=== PATIENT | female | born 1950 | race Caucasian/White ===

== ENCOUNTER → 2018-11-25 11:30 | Outpatient (CLI) | payer OTHER, SELFPAY ==
--- NOTE | 2018-11-25 11:30 | EMB_PTH ---
PATIENT: TAIWO NGO LOC: [facility] U#:[id number] AGE/SX: 74/F ROOM: RE11/25/[address]: Dr. Barak Quiros MD : 1950 BED: DIS: SPEC #: [id number] RECD: 11/26/18 10:43 STATUS: CHARLEY JORGE #: [id number] VIVIAN: 11/25/18 11:[address]: Barak Quiros DEPT: SURGICAL PATHOLOGY RECD BY: Vy Bartlett Tissues: Endometrium, NOS Procedures: Surgery Specimen Level IV HEADER OPERATION: Endometrial biopsy PRE-OP DIAGNOSIS: Post menopausal bleeding N95.0 TISSUE SUBMITTED: Endometrial biopsy MICROSCOPIC DIAGNOSIS Endometrium, biopsy: Rare benign degenerating epithelioid cells noted. AM:talya 11/28/18 COMMENT Clinical correlation is suggested. MICROSCOPIC DESCRIPTION Slides are reviewed. GROSS DESCRIPTION Received in fixative is one container labeled with the patient's name and designated EM biopsy. The specimen is totally submitted in one cassette for cell block preparation. / SJ:talya 11/26/18 TC:5 CPT: 19858
== END ==
PROVIDERS: Referring Provider Obstetrics & Gynecology; Visit Provider Obstetrics & Gynecology
DX: N95.0 Postmenopausal bleeding (principal)
CPT/HCPCS: 88305

== ENCOUNTER → 2018-12-25 10:00 | Outpatient (CLI) | payer OTHER, SELFPAY ==
[2018-12-25 11:18] LABS: Hematocrit 40.8 % (37-47); Hemoglobin 13.1 g/dl (12.0-15.0); Mean Corp Hgb Conc 32.1 g/gl (32-36); Mean Corpuscular Hgb 28.9 pg (27.0-32.0); Mean Corpuscular Volume 89.9 fL (81-99); Mean Platelet Vol. 9.1 fl (6.2-12.0); Platelet Count 251 K/mm3 (150-450); RBC Distribution Width CV 13.6 % (11.6-14.6); RBC Distribution Width SD 44.8 fl (35.1-43.9); Red Blood Count 4.54 M/mm3 (4.2-5.4); White Blood Count 4.4 K/mm3 (4.4-11.0)
[2018-12-25 11:22] LABS: Prothrombin Time (Protime)PT. 12.8 SECONDS (11.7-14.9); Scan Indicated on CBC? Y/N NO
[2018-12-25 11:23] LABS: Partial Thromboplast Time 28.5 Seconds (24.1-36.2)
[2018-12-25 11:44] LABS: ALB/GLOB Ratio 1.1 RATIO (0.9-2.4); AST(SGOT) 14 U/L (15-37); Alanine Aminotransfer ALT/SGPT 15 U/L (13-56); Alkaline Phosphatase 57 U/L (45-117); Anion Gap 6 (5-15); BUN 12 mg/dL (7-18); BUN/Creat Ratio 15.1 RATIO (10-20); Calcium,Total 9.1 mg/dL (8.5-10.1); Chloride 106 mmol/L (98-107); EST Glomerular Filtration Rate 76 mL/min (>60); Est Glom Filt Rate - Afr Amer 92 mL/min (>60); Globulin 3.6 g/dL (2.2-4.2); Glucose 107 mg/dL (74-106); Potassium 3.9 mmol/L (3.5-5.1); Protein, Total 7.6 g/dL (6.4-8.2); Sodium Level 140 mmol/L (136-145)
[2018-12-26 18:51] LABS: Cancer Antigen 125 30.7 U/mL (0.0-38.1)
== END ==
PROVIDERS: Referring Provider Obstetrics & Gynecology; Visit Provider Obstetrics & Gynecology
DX: Z01.818 Encounter for other preprocedural examination (principal)
CPT/HCPCS: 36415; 80053; 85027; 85610; 85730; 86304

== ENCOUNTER 2019-02-23 05:31 | Day surgery (SDC) | payer SELFPAY, OTHER ==
--- NOTE | 2019-02-19 16:45 | EKG12_ITS ---
Test Reason : PREOP Blood Pressure : / mmHG Vent. Rate : 072 BPM Atrial Rate : 072 BPM P-R Int : 210 ms QRS Dur : 080 ms QT Int : 366 ms P-R-T Axes : 068 036 041 degrees QTc Int : 400 ms Sinus rhythm with 1st degree A-V block Otherwise normal ECG No previous ECGs available Confirmed by LARISSA ROJAS ([id number]), book or script editor CORDELL HOYOS ([id number]) on 02/23/2019 3:10:10 PM Referred By: Barak Quiros Confirmed By:LARISSA ROJAS
[2019-02-19 17:30] LABS: Hematocrit 41.1 % (37-47); Hemoglobin 13.2 g/dL (12.0-15.0); Mean Corp Hgb Conc 32.1 g/dL (32-36); Mean Corpuscular Hgb 29.1 pg (27.0-32.0); Mean Corpuscular Volume 90.5 fL (81-99); Mean Platelet Vol. 8.8 fl (6.2-12.0); Platelet Count 235 K/mm3 (150-450); RBC Distribution Width CV 13.1 % (11.6-14.6); RBC Distribution Width SD 43.5 fl (35.1-43.9); Red Blood Count 4.54 M/mm3 (4.2-5.4); White Blood Count 4.8 K/mm3 (4.4-11.0)
[2019-02-19 17:39] LABS: Partial Thromboplast Time 28.4 Seconds (24.1-36.2)
[2019-02-19 17:45] LABS: Creatinine, Serum 0.78 mg/dL (0.55-1.02); EST Glomerular Filtration Rate 79 mL/min (>60); Est Glom Filt Rate - Afr Amer 95 mL/min (>60)
--- NOTE | 2019-02-22 19:26 | HP.PCM_ITS ---
History and Physical Date of Admission: 02/23/19 Surgical History and Physical Juanita Sellers, a 68 year old female 2 0 7 0 2, presents for RAVH/BSO on February 23, 2019 at 10:40. -- Fluid Filled Uterus; OWNER/PHOTOGRAPHER Bleeding -- Juanita presents here today as referral from Dr. Jeancarlos Ly for PMB. 67 y.o. G 9 G 2 (with 5 adopted children as well) post-menopausal non-smoker reporting that a couple months ago, she made a little spotting, then seen PCP for check-up and he ordered an US with same done at [facility] on 10/13/18 with Endometrium fluid filled in diameter of 2.8 cm with report attached. Adds she has had periodic cramping in the last two months as well. PMB which began 4 months ago. Juanita claims it started suddenly It occurs intermittantly. It is located in the vagina. It is located in the lower abdomen. Juanita characterizes the quality spotting, cramping on (L) side. Severity is moderate and very concerned; Associa chantale signs and symptoms are some RLQ crampy pain. Additional comments are: U/S previously showed 2.7 cm endometrial fluid collection; had two C-sections and seven D and Cs in past. Additional comments are: u/s showed fluid filled uterus and bilateral hydrosalpinx; no communication seen between bladder and uterus. CA-125 high normal. MEDICATIONS HISTORY: ALLERGIES: No Known Allergies Infections - Chicken pox, Mumps and Measles Illnesses - no serious past illnesses Accidents - None Hospitalizations - see surgery Review of Systems: GENERAL - Denies fever, or chills SKIN - Denies skin changes EYES - Denies visual changes EARS - Denies difficulty hearing NOSE - Denies nasal congestion or bleeding MOUTH - Denies sore throat or difficulty swallowing NECK - Denies pain or swelling RESPIRATORY - Denies shortness of breath or wheezing CARDIOVASCULAR - Denies palpitations or chest pain GASTROINTESTINAL - Denies nausea, vomiting, diarrhea, constipation GENITOURINARY - Denies dysuria, frequency of urination, incontinence of urine MUSCULOSKELETAL - Denies joint or muscle pain NEUROLOGICAL - Denies localized numbness or weakness PSYCHIATRIC - Denies depression or anxiety ENDOCRINE - Denies heat or cold intolerance, weight loss or gain HEMATO-IMMUNOLOGIC - Denies excessive bleeding with cuts SOCIAL HISTORY: Alcohol Use - None Smoking - Never Diet - no special diet Lifestyle - moderate stress lifestyle and Exercise - active work Seat Belt Use - most of the time Employer - [employer] Illicit Drug Use - None Sexual Activity - Spouse-Sig Other Name - Willie Spouse-Sig Other Occupation - [employer] Children Name(s) - 7 children (5 children adopted) Control - postmenopausal FAMILY HISTORY: MENSTRUAL HISTORY: LMP Known?- Postmenopausal PAST PREGNANCIES: Total Pregnancies - 9; Full Term Pregnancies - 2; Premature - 0; Abortions, Induced - 0; Abortions, Spontaneous - 7; Ectopics - 0; Multiple Births - 0; Living Children - 2 SURGICAL HISTORY: 1. 09/20/1988 2. 09/27/1990 3. 7 D and C's 1989 Fibroidectomy PHYSICAL EXAM BP- 140/90 Sitting, Right arm, regular cuff Weight- 120.87012 lbs Height- 62 inch BMI:21.99 CONSTITUTIONAL - NAD, well nourished, and well developed SKIN - No rash, lesions, or ulcers HEENT - Normocephalic, PERRLA, EOMI NECK - No nodes, no nuchal rigidity and thyroid normal size and texture LYMPH NODES - Palpation of lymph nodes in neck and groins within normal limits LUNGS - CTA x2 without wheezes, crackles or rales CARDIAC - Regular rate and rhythm without rubs, murmurs, or gallops ABDOMEN - Without hepatosplenomegaly, distention, masses, rebound, or guarding; normal bowel sounds; no hernias EXTREMITIES - No edema or calf tenderness NEUROLOGICAL - Cranial nerves II-XII grossly intact PSYCHIATRIC - A and O to time, place, person, mood and affect DETAILED PELVIC EXAM External Genital Vagina - non-tender without lesions Urethra/Urethral Meatus - non-tender Bladder - non-tender Vagina - loss of rugae Cervix - without cervical motion tenderness and has normal size and features without evident lesions; atrophic cervix Uterus - 5-6 cm in size, mobile and nontender Adnexa - clear without masses or tenderness ASSESSMENT/PLAN: Postmenopausal Bleeding Endometrial biopsy was inconclusive due to scant endometrial tissue. For this reason the patient was seen a month later to see if the fluid collection had resolved from having the endometrial biopsy and check endometrial thickness. The endometrial fluid persisted and there was also noted to be dilated tubes. For this reason CA-125 was checked which showed a high-normal result (31). With this result and the persistent uterine findings, the patient desires we proceed with hysterectomy. Robotic Assisted Vaginal Hysterectomy with BSO is planned and all questions answered.
[2019-02-23] VITALS (10 sets, daily range): BP systolic 123–142; BP diastolic 63–86; PULSE 52–77; RESP 16–18; TEMP 36.2–36.6; O2SAT 75–100; BMI 20.6; BMI 20.7
[2019-02-23] MEDS: Lactated Ringers 1,000 ML 100 ML IV ×2 (06:31→06:45)
[2019-02-23] MEDS: Lubricating Jelly 60 GM Tube 30 GM TOPICAL (07:15)
--- NOTE | 2019-02-23 07:30 | HYST_PTH ---
PATIENT: TAIWO NGO LOC: [facility] [place] U#:[id number] AGE/SX: 68/F ROOM: RE02/23/[address]: Dr. Barak Quiros MD : 1950 BED: DIS: 02/24/2019 SPEC #: [id number] RECD: 02/23/19 11:16 STATUS: CHARLEY JORGE #: [id number] VIVIAN: 02/23/19 07:[address]: Barak Quiros DEPT: SURGICAL PATHOLOGY RECD BY: Vy Bartlett ENTERED: 02/23/19 11:44 SP TYPE: HYSTERECT OTHR DR: Dr. Laurie Ly MD Tissues: Uterus, NOS Procedures: Surgery Specimen Level V HEADER OPERATION: robotic assisted vaginal hysterectomy, bilateral salpingo-oophorectomy PRE-OP DIAGNOSIS: Postmenopausal bleeding, hematocolpos, hydrosalpinx TISSUE SUBMITTED: Uterus, cervix, bilateral fallopian tubes, bilateral ovaries MICROSCOPIC DIAGNOSIS Uterus, hysterectomy: Cervix - nabothian cysts and minimal chronic inflammation. Endometrium - inactive endometrium with cystic change. Myometrium - focal adenomyosis. Right fallopian tube - hydrosalpinx. Right ovary - corpora albicantia. Left fallopian tube - hydrosalpinx. Left ovary - corpora albicantia. AM:talya 02/24/19 COMMENT Case has been reviewed in consultation with Dr. Barreto who concurs with the above diagnosis. IDC:[email or web address] MICROSCOPIC DESCRIPTION Slides are reviewed. GROSS DESCRIPTION Received in fixative is one container labeled with the patient's name and designated uterus, cervix, bilateral fallopian tubes and bilateral ovaries. The specimen consists of a hysterectomy specimen consisting of uterus with cervix, attached bilateral fallopian tubes and right ovary. The left ovary is not identified. The specimen contains a detached piece of tissue measuring 3 x 2 x 0.2 cm. The uterus with cervix weighs 29 gm and measures 7 x 4.5 x 2.5 cm. The serosal surface is focally ragged anteriorly. The ectocervical mucosa is congested. The external os is circular in contour. The endocervical canal measures 2.5 cm in length and the endocervical mucosa is almanza, glistening and unremarkable. The endometrial cavity is triangular and saucer shape measuring 4 cm in length and 2.5 cm in width. The endometrium is focally congested without any mass lesion and measures <0.1 cm in thickness. Sections of the uterine wall do not reveal any mass lesion and measures up to 1 cm in thickness. The right fallopian tube measures 4 cm in length and 0.5 to 1 cm in diameter. Obvious fimbrial end is not identified. The fallopian tube is filled with clear fluid. The right ovary measures 2.5 x 1 x 1 cm. Sections reveal a hemorrhagic cyst measuring 1.5 cm in greatest dimension. The left fallopian tube is similar appearance to right and measures 4.5 cm in length and 0.5 to 1.2 cm in diameter. The left ovary is not identified. The dilated portion of the fallopian tube is filled with clear fluid. Automatic Coil Machine Operator sections are submitted in 11 cassettes as follows: 1 - anterior cervix, 2 - posterior cervix, 3 & 4 - anterior uterine wall, 5 & 6 - posterior uterine wall, 7 - right fallopian tube, 8 - right ovary, 9 & 10 - left fallopian tube (dilated portion of the fallopian tubes are submitted in entirety), 11 - detached piece of tissue, submitted in entirety. / VAISHNAVI:talya 02/23/19 TC:5 CPT: 34873
--- NOTE | 2019-02-23 07:30 | PCM.OPRPT ---
Report of Operation Date of Procedure: 02/23/19 Pre-Operative Diagnosis: Postmenopausal bleeding, Hematocolpos, Hydrosalpinx Post-Operative Diagnosis: Postmenopausal bleeding, Hematocolpos, Hydrosalpinx, Adhesions Surgery/Procedure Performed:: Robotic Assisted Vaginal Hysterectomy and Bilateral Salpingo-Oophorectomy, Lysis of Adhesions Description of Surgical Findings:: 8-10 cm uterus with normal-appearing fallopian tubes and ovaries except for mildly dilated fallopian tubes. Clear fluid filling the endometrial cavity and adhesions of the left ovary to pelvic sidewall. Adhesions of the omentum to the right anterior abdominal wall. Adhesions of the uterus to the anterior abdominal wall and bladder. Narrow pelvis and small vagina. stitching machine setter: Jose Astudillo Type of Anesthesia:: General - Endotracheal Anesthesiologist: Lee Ann Ross Specimen's removed: Uterus, bilateral fallopian tubes and ovaries Drains: Salazar to straight drain Estimated Blood Loss (mL): Minimal Fluids Replaced: Crystalloid Description of Procedure: Surgeon: Barak Quiros MD, FACOG Indication: This is a 68 year old patient who has been having problems with postmenopausal bleeding and was noted to have fluid-filled endometrial cavity and bilateral hydrosalpinx. Her Ca-125 was also high normal. Given this, the patient desires we proceed with the above surgery. The patient has been counseled regarding the risks, benefits and alternatives of this procedure including the possibility of bleeding, infection, and injury to surrounding structures such as bowel bladder and all questions were answered. Procedure: Pt taken to the operating room where, after induction of general anesthesia, the patient was prepped and draped in the usual sterile fashion and placed on a non-slip Huggy-u-vac device. Trendelenburg test was satisfactory. Bladder was drained of urine with a Salazar catheter which was left in place. Anterior cervix grasped and cervix was dilated to about 3-4 mm. Uterus sounded to 9 cms. 0-Vicryl suture was placed at the 3:00 and 9:00 position of the cervix. A small Advincula Professor Of Communication Uterine Manipulator was then placed in the uterus and attention was turned to the laparoscopic portion of the procedure. Ropivocaine 0.5% was injected approximately 2-3 cm superior to the umbilicus and an 8 mm robotic camera port was introduced directly with intraperitoneal placement confirmed with CO2 insufflation. 8 mm robotic side ports were introduced under direct visualization approximately 10-11 cm lateral and 2 cm inferior to the umbilical port. A 5 mm left upper quadrant port was introduced and airseal insufflation with CO2 was started. The above findings were noted. Robot was docked without difficulty and attention turned to the robotic portion of the procedure. Approximately 20 cc of Ropivicaine was used. Bilateral infundibulopelvic ligaments/mesosalpinx were ligated with 35 anguiano bipolar coagulation to the level of the round ligament after taking down the omental adhesions and freeing the left ovary from the pelvic sidewall and right fallopian tube from the right sidewall. The posterior aspect of the cervix was identified and then opened for about 1 cm using 25 watt monopolar cautery identifying the uterine manipulating device which had been placed vaginally. Bladder flap was opened and divided to the level of the round ligaments using monopolar cautery. Progressive bites were then ligated on each side of the cervix with 35 anguiano bipolar cautery to the uterine arteries. The anterior vaginal mucosa was entered and cervix circumscribed with monopolar cautery. Uterus and attached tubes and ovaries were removed through the vagina. Vaginal cuff was closed first with 0-Vicryl Erika stitches placed at each angle followed by closure of the mid-cuff with 0-Monocryl V-lock suture in two layers. Pelvis was copiously irrigated with saline and the right and left ureters was noted to peristalse. There was noted to be some oozing from the left pelvic sidewall where the left ovary had been adhered. Surgicel powder was placed across this area to help with postoperative hemostasis. Robot was undocked and trocars were removed with as much gas as possible. Incisions were closed with 4-0 Monocryl subcuticular sutures and incisions covered with steri-strips. The vagina was examined and a single [id number] 2-0 chromic suture was placed in the posterior aspect of the vagina close a 1 cm abrasion from the uterine manipulator. The patient tolerated the procedure well and was taken to the recovery room in satisfactory condition. Sponge, instruments and needle counts were all correct. There were no apparent complications of the surgery. After 10 2 gms IV was given prior to the procedure. Estimated Blood Loss: Minimal Specimen to Pathology: Uterus and bilateral fallopian tubes and ovaries Grafts/Implants Used: None - Complications None - Admit VTE Documentation VTE Present on Admission: Yes VTE Mechan Device Prophylaxis: SCD's VTE Pharm Prophylaxis ordered?: Yes
--- NOTE | 2019-02-23 07:38 | DCINST_ITS ---
Discharge Diet: No Restrictions Discharge Activity: Return to Normal Activity, May Not Drive - while taking narcotic pain medications., May Shower May resume sexual activity in: 6-8 weeks Call your doctor if your incision/area has: Continuous Slow Oozing, Sudden Increased Bleeding, Increased Pain/ Swelling, Increased Redness, Foul Smelling Discharge Call your doctor if you observe: Fever of 101 or Higher, Inability to urinate, Inability to have a bowel movement, Using more than one pad per hour Allergies/Adverse Reactions: Allergies No Known Allergies Allergy (Verified 02/23/19 06:12) Medications to take at Discharge Docusate Sodium [Colace] 100 mg PO BID PRN PRN #60 cap 02/23/19 Oxycodone [Oxyir] 5 mg PO Q6H PRN PRN 7 Days #10 tab 02/23/19 The following prescriptions were given: Docusate Sodium [Colace] 100 mg PO BID PRN PRN #60 cap PRN Reason: Constipation Prescription Printed Oxycodone [Oxyir] 5 mg PO Q6H PRN PRN 7 Days #10 tab PRN Reason: Severe Pain (-03/26) Prescription Printed Primary Care Physician: Laurie Ly MD [Primary Care Provider] - Test Results: Test results from this visit will be discussed in further detail at your follow- up appointment, if applicable. Please Follow Up With: Barak Quiros MD When: 2 to 3 weeks
[2019-02-23] MEDS: Ropivacaine 0.5% 30 ML Vial (08:00)
[2019-02-23] MEDS: HYDROmorphone 0.5 MG/0.5 ML SYRINGE IV (11:16)
[2019-02-23] MEDS: Dextrose 5%-Lactated Ringers 1,000 ML 125 ML IV ×2 (11:51→21:14)
[2019-02-23] MEDS: Ketorolac 15 MG/ML Vial IV ×2 (15:44→21:13)
[2019-02-23] MEDS: 0.9% NaCl Peripheral Flush Adult/Peds IV (15:44)
[2019-02-23] MEDS: Enoxaparin 30 MG/0.3 ML Syringe SC (17:30)
[2019-02-23] MEDS: Ondansetron 4 MG/2 ML Vial IV (21:13)
[2019-02-24 03:15] VITALS: BP 105/66; PULSE 63; RESP 16; TEMP 36.9; O2SAT 98
[2019-02-24] MEDS: Ketorolac 15 MG/ML Vial IV (03:31)
[2019-02-24 05:58] LABS: Hematocrit 33.7 % (37-47); Hemoglobin 11.2 g/dL (12.0-15.0); Mean Corp Hgb Conc 33.2 g/dL (32-36); Mean Corpuscular Hgb 29.6 pg (27.0-32.0); Mean Corpuscular Volume 88.9 fL (81-99); Mean Platelet Vol. 8.8 fl (6.2-12.0); Platelet Count 170 K/mm3 (150-450); RBC Distribution Width CV 12.9 % (11.6-14.6); RBC Distribution Width SD 41.8 fl (35.1-43.9); Red Blood Count 3.79 M/mm3 (4.2-5.4); White Blood Count 7.9 K/mm3 (4.4-11.0)
--- NOTE | 2019-02-24 06:00 | NURSING ---
Martin delgadillo/yayo @ 0600 per order
[2019-02-24 06:20] LABS: Creatinine, Serum 0.74 mg/dL (0.55-1.02); EST Glomerular Filtration Rate 83 mL/min (>60); Est Glom Filt Rate - Afr Amer 101 mL/min (>60); Estimated Creatinine Clearance 46.41 ml/min
[2019-02-24 07:09] VITALS: O2SAT 95
[2019-02-24 08:00] VITALS: BP 116/74; PULSE 81; RESP 18; TEMP 36.5; O2SAT 99
--- NOTE | 2019-02-24 08:41 | PCM.PN.OB ---
Subjective: Patient without complaints. Tolerating diet well. Minimal vaginal bleeding. Positive flatus. Pain well controlled. Ready to go home. - Physical Exam Vital Signs Temp Pulse Resp BP Pulse Ox 97.7 F L 81 18 116/74 99 02/24/19 08:00 02/24/19 08:00 02/24/19 08:00 02/24/19 08:00 02/24/19 08:00 Oxygen Flow Rate (L/min) 2 Oxygen Delivery Method Room Air Weight: 120 lb 5.958 oz Body Mass Index (BMI) 20.6 Intake and Output for Last 24 Hours 02/22/19 02/23/19 02/24/19 23:59 23:59 23:59 Intake Total 2650.00 / 2650.00 1800 / 1800 Output Total 1105 / 1105 3150 / 3150 Balance 1545.00 / 1545.00 -1350 / -1350 Laboratory Tests Past 24 Hrs 02/24/19 02/24/19 05:36 05:36 WBC 7.9 RBC 3.79 L Hgb 11.2 L Hct 33.7 L MCV 88.9 MCH 29.6 MCHC 33.2 RDW Std Deviation 41.8 RDW Coeff of Camila 12.9 Plt Count 170 MPV 8.8 Creatinine 0.74 Estim Creat Clear Calc 46.41 Est GFR (MDRD) Af Amer 101 Est GFR (MDRD) Non-Af 83 Wounds are clean, dry, intact. Good urine output. Hemoglobin and creatinine okay. Medical Necessity - Tobacco Use Smoking Status: Never smoker Tobacco Use: Non-smoker Assessment/Plan Doing well postoperative day #1 status post robotic assisted vaginal hysterectomy and bilateral salpingo-oophorectomy. Will release to home with routine instructions.
[2019-02-24] MEDS: Ketorolac 10 MG Tablet PO (09:51)
== END 2019-02-24 10:22 | disposition home or self-care (01) ==
LOC: SDC 05:34 → AC 05:34 → MS3 08:02
PROVIDERS: Referring Provider Obstetrics & Gynecology; Visit Provider Obstetrics & Gynecology
PROC: 0UT94ZZ Resection of Uterus, Percutaneous Endoscopic Approach (ICD-10-PCS; CPT 58552; principal; 2019-02-23 07:10)
DX: N80.0 Endometriosis of uterus (principal); N95.0 Postmenopausal bleeding; N83.12 Corpus luteum cyst of left ovary; N83.11 Corpus luteum cyst of right ovary; N72 Inflammatory disease of cervix uteri; N70.11 Chronic salpingitis; N89.7 Hematocolpos; N88.8 Other specified noninflammatory disorders of cervix uteri
CPT/HCPCS: 00940; 58552; S2900; 36415; 82565; 85027; 85610; 85730; 86850; 86900; 86901; 88307; 93005; J7120; A4216; J2405